=== PATIENT | male | born 1980 | race Two or more races ===

== ENCOUNTER 2017-03-26 14:09 | Emergency (ER) | payer SELFPAY ==
[2017-03-26 14:52] LABS: ADD MAN DIFF? NO
[2017-03-26 14:57] LABS: BASO % 0 % (0-3); EOS # 0.3 x10^3/uL (0.0-0.7); EOS % 4 % (0-3); HEMATOCRIT 42.8 % (39.0-53.0); HEMOGLOBIN 14.1 g/dL (13.0-17.5); LYMPH % 24 % (24-48); MEAN CORPUSCULAR HEMOGLOBIN 30 pg (25-35); MEAN CORPUSCULAR HGB CONC 33 g/dL (31-37); MEAN CORPUSCULAR VOLUME 91 fL (79-100); MONO # 0.8 x10^3/uL (0.0-1.1); MONO % 10 % (0-9); NEUT # 5.1 x10^3uL (1.8-7.7); NEUT % 62 % (31-73); PLATELET COUNT 248 x10^3/uL (140-400); RED BLOOD COUNT 4.71 x10^6/uL (4.30-5.70); RED CELL DISTRIBUTION WIDTH 13.5 % (11.5-14.5); WHITE BLOOD COUNT 8.1 x10^3/uL (4.0-11.0)
[2017-03-26 15:06] LABS: PARTIAL THROMBOPLASTIN TIME 25 SEC (24-38); PROTHROMBIN TIME PATIENT 12.4 SEC (11.7-14.0)
[2017-03-26 15:11] LABS: ANION GAP 7 (6-14); BLOOD UREA NITROGEN 18 mg/dL (8-26); BUN/CREATININE RATIO 18 (6-20); CALCIUM 8.6 mg/dL (8.5-10.1); CARBON DIOXIDE 31 mmol/L (21-32); CHLORIDE 105 mmol/L (98-107); GLUCOSE 108 mg/dL (70-99); POTASSIUM 4.3 mmol/L (3.5-5.1); SODIUM 143 mmol/L (136-145)
[2017-03-26 15:12] LABS: ETHANOL < 10 mg/dL (0-10)
[2017-03-26 15:16] LABS: TROPONINI < 0.017 ng/mL (0.000-0.055)
[2017-03-26 15:16] LABS: ALBUMIN/GLOBULIN RATIO 1.4 (1.0-1.7); ALK PHOS 97 U/L (46-116); ALT (SGPT) 17 U/L (16-63); AST (SGOT) 12 U/L (15-37); CREATINE KINASE 58 U/L (39-308); TOTAL BILIRUBIN 0.4 mg/dL (0.2-1.0); TOTAL PROTEIN 6.9 g/dL (6.4-8.2)
[2017-03-26 15:21] LABS: NT-PRO BNP 22 pg/mL (0-124)
[2017-03-26 15:26] LABS: D-DIMER 0.27 ug/mlFEU (0.00-0.50)
[2017-03-26] MEDS: KETOROLAC 30 MG/ML INJ. IV (15:31)
[2017-03-26] MEDS: IV NORMAL SALINE 1000ML BAG 1,000 ML IV (15:31)
[2017-03-26] MEDS: HYDROcodone/APAP 5/325MG 1 TAB TABLET PO (15:32)
[2017-03-26 16:45] LABS: BILIRUBIN,URINE NEGATIVE (NEG); CLARITY,URINE CLOUDY; COLOR,URINE YELLOW; GLUCOSE,URINE NEGATIVE (NEG); NITRITE,URINE NEGATIVE (NEG); PROTEIN,URINE NEGATIVE (NEG-TRACE)
[2017-03-26 16:53] LABS: AMPHETAMINE/METHAMPHETAMINE NEG (NEG); BARBITURATES NEG (NEG); BENZODIAZEPINES NEG (NEG); CANNABINOIDS NEG (NEG); COCAINE NEG (NEG); ETHANOL, URINE NEG (NEG); METHADONE NEG (NEG); OPIATES NEG (NEG); PHENCYCLIDINE NEG (NEG)
[2017-03-26 17:01] LABS: BACTERIA,URINE 0 /HPF (0-FEW); RBC,URINE 0 /HPF (0-2); SQUAMOUS EPITHELIAL CELL,UR OCC /LPF; WBC,URINE OCC /HPF (0-4)
== END 2017-03-26 18:25 | disposition home or self-care (01) ==
LOC: ER 14:09
DX: R07.89 Other chest pain (principal); R53.83 Other fatigue; R53.1 Weakness
CPT/HCPCS: 36415; 71045; 80053; 80307; 81001; 82550; 83735; 83880; 84484; 85025; 85379; 85610; 85730; 93005; 96361; 96374; 99285-25; G0480; J1885; J7030